=== PATIENT | female | born 1935 | race American Indian/Alaskan Native ===

== ENCOUNTER 2017-12-26 01:44 | Emergency (ER) | payer MEDICARE ==
[2017-12-26 02:01] VITALS: TEMP 98.5
--- NOTE | 2017-12-26 03:12 | ED PDOC ---
Arrival/HPI - General Chief Complaint: Upper Extremity Problem/Injury Time Seen by Provider: 12/26/17 01:56 Historian: EMS EM Caveat: Dementia - History of Present Illness Narrative History of Present Illness (Text): 12/26/17 02:45 82 year old female, whose past medical history includes hypertension, seizures, brain tumor ( remote) s/p surgery, and possible dementia, presents to the emergency department by EMS found wondering in [place]. As per EMS, patient' s only complaint is right wrist pain which she had injured recently and was already x-rayed in [facility] for on 12/18/17 which revealed a fracture. HPI and ROS limited due to patient's current state of dementia. Past Medical History - Provider Review Nursing Documentation Reviewed: Yes - Infectious Disease Hx of Infectious Diseases: None - Cardiac Hx Cardiac Disorders: Yes Hx Cardiac Arrhythmia: No Hx Congestive Heart Failure: No Hx Hypertension: Yes Hx Mitral Valve Prolapse: No Hx Pacemaker: No Hx Peripheral Edema: No - Pulmonary Hx Asthma: No Hx Bronchitis: No Hx Chronic Obstructive Pulmonary Disease (COPD): No Hx Emphysema: No Hx Pneumonia: No Hx Sleep Apnea: No - Neurological Hx Neurological Disorder: Yes Hx Alzheimer's Disease: No Hx Migraine: No Hx Parkinson's Disease: No Hx Seizures: Yes Hx Transient Ischemic Attacks (TIA): No - HEENT Hx HEENT Disorder: No - Renal Hx Renal Disorder: No Hx Kidney Stones: No - Endocrine/Metabolic Hx Hyperthyroidism: No Hx Hypothyroidism: No - Hematological/Oncological Hx Anemia: No Hx Sickle Cell Disease: No - Integumentary Hx Dermatological Disorder: No - Musculoskeletal/Rheumatological Hx Arthritis: No Hx Fractures: No Hx Osteoporosis: No - Gastrointestinal Hx Crohn's Disease: No Hx Diverticulitis: No Hx Gall Bladder Disease: No Hx Gastrointestinal Ulcer: No Hx Pancreatitis: No - Genitourinary/Gynecological Hx Sexually Transmitted Diseases: No - Psychiatric Hx Anxiety: No Hx Bipolar Disorder: No Hx Depression: No Hx Post Traumatic Stress Disorder: No Hx Schizophrenia: No Hx Substance Use: No - Surgical History Hx Appendectomy: No Hx Cholecystectomy: No Hx Coronary Stent: No - Anesthesia Hx Anesthesia: Yes Hx Anesthesia Reactions: No Hx Malignant Hyperthermia: No - Suicidal Assessment Feels Threatened In Home Enviroment: No Family/Social History - Physician Review Nursing Documentation Reviewed: Yes Family/Social History: No Known Family HX Smoking Status: Never Smoked Hx Alcohol Use: No Hx Substance Use: No Allergies/Home Meds Allergies/Adverse Reactions: Allergies No Known Allergies Allergy (Verified 12/18/17 11:11) Home Medications: Home Meds Medication Instructions Recorded Confirmed Unobtainable 12/26/17 12/26/17 Review of Systems - Physician Review All systems were reviewed & negative as marked: Yes - Review of Systems Systems not reviewed;Unavailable: Dementia Physical Exam Vital Signs Reviewed: Yes Vital Signs Temp Pulse Resp BP Pulse Ox 12/26/17 06:09 86 16 149/78 97 12/26/17 01:56 98.5 F 68 17 155/73 H 99 Temperature: Afebrile Blood Pressure: Hypertensive Pulse: Regular Respiratory Rate: Normal Appearance: Positive for: Well-Appearing, Non-Toxic, Comfortable Pain Distress: None Mental Status: Positive for: Alert and Oriented X 3 - Systems Exam Head: Present: Atraumatic, Normocephalic Pupils: Present: PERRL Extroacular Muscles: Present: EOMI Conjunctiva: Present: Normal Mouth: Present: Moist Mucous Membranes Neck: Present: Normal Range of Motion Respiratory/Chest: Present: Clear to Auscultation, Good Air Exchange. No: Respiratory Distress, Accessory Muscle Use Cardiovascular: Present: Regular Rate and Rhythm, Normal S1, S2. No: Murmurs Abdomen: No: Tenderness, Distention, Peritoneal Signs Back: Present: Normal Inspection Upper Extremity: Present: Tenderness (Some tenderness to the right wrist). No: Cyanosis, Edema Lower Extremity: Present: Normal Inspection. No: Edema Neurological: Present: GCS=15, CN II-XII Intact, Speech Normal Skin: Present: Warm, Dry, Normal Color. No: Rashes Psychiatric: Present: Alert, Oriented x 3, Normal Insight, Normal Concentration Medical Decision Making ED Course and Treatment: 12/26/17 02:55 Impression: 82 year old female presents [place] [address]. Patient's only complaint is right wrist pain which [facility] recently x-ray and resulted in a fracture. Plan: -- Reassess and disposition Prior Visits: Notes and results from previous visits were reviewed. Progress Notes: 12/26/17 03:08 Patient's son called and notified. He will be coming to the ER to pick her up. 12/26/17 06:39 Son in the ED to pick the patient up. She is awake and alert, ambulated to the bathroom without difficulty. Son notes that patient has seen ortho for her wrist and has another followup in several weeks. - Scribe Statement The provider has reviewed the documentation as recorded by the Marjorie Summers Provider Scribe Attestation: All medical record entries made by the Scribe were at my direction and personally dictated by me. I have reviewed the chart and agree that the record accurately reflects my personal performance of the history, physical exam, medical decision making, and the department course for this patient. I have also personally directed, reviewed, and agree with the discharge instructions and disposition. Disposition/Present on Arrival - Present on Arrival Any Indicators Present on Arrival: No History of DVT/PE: No History of Uncontrolled Diabetes: No Urinary Catheter: No History of Decub. Ulcer: No History Surgical Site Infection Following: None - Disposition Have Diagnosis and Disposition been Completed?: Yes Diagnosis: Right wrist pain Disposition: HOME/ ROUTINE Disposition Time: 06:30 Patient Problems: Current Active Problems Problem Status Onset Right wrist pain Acute Condition: FAIR Discharge Instructions (ExitCare): Wrist Fracture (DC) Additional Instructions: ELAYNE COHEN, thank you for letting us take care of you today. Your provider was Cherie Sheppard MD and you were treated for RIGHT ARM PAIN. The emergency medical care you received today was directed at your acute symptoms. If you were prescribed any medication, please fill it and take as directed. It may take several days for your symptoms to resolve. Return to the Emergency Department if your symptoms worsen, do not improve, or if you have any other problems. Please contact your doctor or call one of the physicians/clinics you have been referred to that are listed on the Patient Visit Information form that is included in your discharge packet. Bring any paperwork you were given at discharge with you along with any medications you are taking to your follow up visit. Our treatment cannot replace ongoing medical care by a primary care provider outside of the emergency department. Thank you for allowing the [facility] team to be part of your care today. If you had an X-Ray or CT scan: A Radiologist will review the ED reading if any change in treatment is needed we will contact you. If you had a blood, urine, or wound culture: It will take several days for the results, if any change in treatment is needed we will contact you. If you had an STI test: It will take 48 hours for the results. Please call after 1 week if you have not heard back. Referrals: Donnie Cohen JD, MD [Primary Care Provider] - Follow up with primary Forms: [employer] (Japanese)
[2017-12-26 06:10] VITALS: BP 149/78; PULSE 86; RESP 16; O2SAT 97
== END 2017-12-26 06:40 | disposition home or self-care (01) ==
LOC: ED 01:44
DX: M25.531 Pain in right wrist (principal); I10 Essential (primary) hypertension

== ENCOUNTER 2018-01-27 10:48 | Emergency (ER) | payer MEDICARE ==
[2018-01-27 11:12] VITALS: RESP 18
--- NOTE | 2018-01-27 12:15 | RAD ---
PROCEDURE: Right Hand Radiographs. HISTORY: wrist pain COMPARISON: None. FINDINGS: BONES: Comminuted intra-articular fracture of the distal radius, with callus formation indicating nonacute nature. There is dorsal angulation of the distal radius. There is an ununited ulnar styloid process fracture with minimal displacement. The radiocarpal articulation is grossly intact. The hand is intact. There is no osseous fracture appreciated. JOINTS: Normal. No osteoarthritic changes. SOFT TISSUES: Normal. OTHER FINDINGS: None. IMPRESSION: Healing comminuted intra-articular distal radial fracture with dorsal angulation. Ununited mildly displaced ulnar styloid process fracture.
[2018-01-27 12:36] LABS: INR 0.96; PARTIAL THROMBOPLASTIN TIME 25.1 Seconds (25.1-36.5)
[2018-01-27 12:43] LABS: ALBUMIN 3.6 g/dL (3.0-4.8); ALT/SGPT 41 U/L (7-56); AST/SGOT 47 U/L (14-36); BLOOD UREA NITROGEN 18 mg/dL (7-21); GFR AFRICAN-AMERICAN > 60; GFR NON-AFRICAN AMERICAN 53
--- NOTE | 2018-01-27 12:48 | ED PDOC ---
Arrival/HPI - General Chief Complaint: Lower Extremity Problem/Injury Time Seen by Provider: 01/27/18 10:58 Historian: Patient, Family EM Caveat: Acuity of Condition - History of Present Illness Narrative History of Present Illness (Text): 82 y/o F w/ h/o DM, presenting for bilateral LE swelling ongoing for the last 2 weeks. Per patient's son, the patient was noted to have bilateral swelling of the lower extremities for the last month, but worsened in the last 2 weeks. He reports the patient has been able to ambulate with the assistance of a walker, but complains of discomfort. She denies any changes in swelling with elevation of the lower extremities when sitting down & denies calf pain. She also complains of a R wrist pain s/p an injury sustained last week when she had a door collide into her hand. She reports previously having a splint placed, but was unsure of if the wrist was fractured and took it off the next day. She denies chest pain, shortness of breath, palpitations, back pain, abdominal pain , dizziness, nausea/emesis or syncopal episodes. She reports being on aspirin and Plavix. Time/Duration: > week Symptom Onset: Gradual Symptom Course: Worsening Quality: Aching, Pressure Severity Level: Moderate Activities at Onset: Rest Context: Home Past Medical History - Provider Review Nursing Documentation Reviewed: Yes - Travel History Have you recently traveled outside [place] w/in the past 3 mons?: No - Infectious Disease Hx of Infectious Diseases: None - Cardiac Hx Cardiac Disorders: Yes Hx Cardiac Arrhythmia: No Hx Congestive Heart Failure: No Hx Hypertension: Yes Hx Mitral Valve Prolapse: No Hx Pacemaker: No Hx Peripheral Edema: No - Pulmonary Hx Asthma: No Hx Bronchitis: No Hx Chronic Obstructive Pulmonary Disease (COPD): No Hx Emphysema: No Hx Pneumonia: No Hx Sleep Apnea: No - Neurological Hx Neurological Disorder: No - HEENT Hx HEENT Disorder: No - Renal Hx Renal Disorder: No Hx Kidney Stones: No - Endocrine/Metabolic Hx Hyperthyroidism: No Hx Hypothyroidism: No - Hematological/Oncological Hx Anemia: No Hx Sickle Cell Disease: No - Integumentary Hx Dermatological Disorder: No - Musculoskeletal/Rheumatological Hx Arthritis: No Hx Fractures: No Hx Osteoporosis: No - Gastrointestinal Hx Crohn's Disease: No Hx Diverticulitis: No Hx Gall Bladder Disease: No Hx Gastrointestinal Ulcer: No Hx Pancreatitis: No - Genitourinary/Gynecological Hx Sexually Transmitted Diseases: No - Psychiatric Hx Anxiety: No Hx Bipolar Disorder: No Hx Depression: No Hx Post Traumatic Stress Disorder: No Hx Schizophrenia: No Hx Substance Use: No - Surgical History Hx Appendectomy: No Hx Cholecystectomy: No Hx Coronary Stent: No - Anesthesia Hx Anesthesia: Yes Hx Anesthesia Reactions: No Hx Malignant Hyperthermia: No - Suicidal Assessment Feels Threatened In Home Enviroment: No Family/Social History - Physician Review Nursing Documentation Reviewed: Yes Family/Social History: Unknown Family HX Smoking Status: Never Smoked Hx Alcohol Use: No Hx Substance Use: No Allergies/Home Meds Allergies/Adverse Reactions: Allergies No Known Allergies Allergy (Verified 12/18/17 11:11) Home Medications: Home Meds Medication Instructions Recorded Confirmed Unobtainable 12/26/17 12/26/17 Review of Systems - Review of Systems Eyes: absent: Vision Changes, Photophobia, Eye Pain ENT: absent: Hearing Changes Respiratory: absent: SOB, Sputum, Wheezing Cardiovascular: Edema. absent: Chest Pain, Palpitations, Calf Pain, Syncope Gastrointestinal: absent: Abdominal Pain, Constipation, Nausea, Vomiting Skin: absent: Rash, Laceration, Cellulitis Neurological: absent: Headache, Dizziness, Gait Changes Psychiatric: absent: Anxiety, Depression Physical Exam Vital Signs Reviewed: Yes Vital Signs Temp Pulse Resp BP Pulse Ox 01/27/18 18:31 98 F 76 18 131/72 96 01/27/18 16:10 50 L 18 126/60 100 01/27/18 10:49 97.7 F 55 L 18 120/96 H 100 Mental Status: Positive for: Alert and Oriented X 3 - Systems Exam Head: Present: Atraumatic, Normocephalic Neck: Present: Normal Range of Motion. No: MIDLINE TENDERNESS, Paraspinal Tenderness Respiratory/Chest: Present: Clear to Auscultation, Good Air Exchange. No: Respiratory Distress, Wheezes Cardiovascular: Present: Normal S1, S2, Peripheal Pulses Present, Bradycardic. No: Irregular Rhythm Abdomen: No: Tenderness, Distention, Peritoneal Signs Lower Extremity: Present: Edema, NORMAL PULSES, Normal ROM, Capillary Refill < 2 s. No: CALF TENDERNESS, Cyanosis Neurological: Present: GCS=15, CN II-XII Intact, Speech Normal Skin: Present: Warm, Dry, Normal Color. No: Erythematous, Laceration Psychiatric: Present: Alert, Oriented x 3, Normal Insight, Normal Concentration Medical Decision Making ED Course and Treatment: Impression 82 y/o F s/p fall w/ b/l LE edema Given the patient does not have history of HF, but has worsening edema, labs and clinical suspicion for volume overload will be monitored. She may also have an occult fracture that may need splinting and will have imaging studies performed for confirmation. Differential Diagnoses Include but is not limited to: Lymphedema CHF Fracture Plan -XR hand -LE Duplex dopplers -Labs -Analgesics -Consult to Orthopedics -Reassess & Dispostion Progress Notes 01/27/18 12:42 XR show communiuted fracture of distal radius w/ ulnar styloid process fracture with minimal displacement. Spoke to Dr. Da Silva(ortho) who requests splinting with follow up in office on . Dopplers pending. 01/27/18 13:29 Chemistries unremarkable. Lab called and reports CBC hemolysis. Redrawn with specimen sent back to lab. Patient comfortable with no complaints at this time. Spoke with Dr. Da Silva who requests patient to have wrist XR. Pending Doppler read. 01/27/18 15:00 Call placed to US in regards to Doppler results. Tech will remind reading radiologist of pending read. Diet ordered for patient. 01/27/18 15:04 XR wrist consistent with previous hand XR. Pending Doppler read. 01/27/18 16:00 Call to radiologist jaylen who states radiologist is currently in procedure and will remind him of pending read. Patient comfortable and asymptomatic at this time. - Lab Interpretations Lab Results: 01/27/18 13:05 01/27/18 12:10 Lab Results 01/27/18 13:05: WBC 5.7, RBC 3.76, Hgb 11.2 L, Hct 34.1 L, MCV 90.7, MCH 29.8, MCHC 32.8, RDW 13.8, Plt Count 130, MPV 9.5, Gran % 47.7 L, Lymph % (Auto) 44.1 H, [place] % (Auto) 6.3 H, Eos % (Auto) 1.7, Baso % (Auto) 0.2, Gran # 2.74, Lymph # (Auto) 2.5, [place] # (Auto) 0.4, Eos # (Auto) 0.1, Baso # (Auto) 0.01 01/27/18 12:10: PT 11.0, INR 0.96, APTT 25.1 01/27/18 12:10: Sodium 143, Potassium 4.8, Chloride 109 H, Carbon Dioxide 28, Anion Gap 11, BUN 18, Creatinine 1.0, Est GFR ( Amer) > 60, Est GFR (Non- Af Amer) 53, Random Glucose 92, Calcium 9.0, Total Bilirubin 0.3, AST 47 H D, ALT 41, Alkaline Phosphatase 110, Total Protein 7.4, Albumin 3.6, Globulin 3.7, Albumin/Globulin Ratio 1.0 L - RAD Interpretation Radiology Orders: 01/27/18 11:23 HAND RIGHT 3 VIEWS [RAD] Stat DUPLEX LOWER EXTRM VEIN BILAT [US] Stat 01/27/18 13:49 WRIST, RIGHT 3 VIEWS [RAD] Stat - Medication Orders Current Medication Orders: Discontinued Medications Acetaminophen (Tylenol 325mg Tab) 650 mg PO STAT STA Stop: 01/27/18 11:27 Last Admin: 01/27/18 12:10 Dose: 650 mg MAR Pain/Vitals Document 01/27/18 12:10 EQ (Rec: 01/27/18 12:10 EQ [id number]) Pain Reassessment Is This A Pain ReAssessment? No Sleep Is patient sleeping during reassessment? No Presence of Pain Presence of Pain Yes Ibuprofen (Motrin Tab) 600 mg PO STAT STA Stop: 01/27/18 11:28 Last Admin: 01/27/18 12:10 Dose: 600 mg MAR Pain/Vitals Document 01/27/18 12:10 EQ (Rec: 01/27/18 12:11 EQ [id number]) Pain Reassessment Is This A Pain ReAssessment? No Sleep Is patient sleeping during reassessment? No Presence of Pain Presence of Pain Yes Disposition/Present on Arrival - Present on Arrival Any Indicators Present on Arrival: No History of DVT/PE: No History of Uncontrolled Diabetes: No Urinary Catheter: No History of Decub. Ulcer: No History Surgical Site Infection Following: None - Disposition Have Diagnosis and Disposition been Completed?: Yes Diagnosis: Leg edema, Wrist fracture, right Disposition: HOME/ ROUTINE Disposition Time: 15:30 Patient Plan: Discharge Condition: IMPROVED Discharge Instructions (ExitCare): Dependent Edema (DC), Wrist Fracture (DC) Additional Instructions: Please follow up with Dr. Da Silva(bone doctor) in 2 days. Call his office at [phone] to set an appointment Bring your wrist XR with you Do no remove splint from wrist until after you see Dr. Da Silva in office. Referrals: Donnie Cohen JD, MD [Primary Care Provider] - Follow up with primary Forms: [employer] (Yakut)
[2018-01-27 13:17] LABS: BASO # 0.01 K/mm3 (0.0-2.0); BASO % 0.2 % (0.0-3.0); EOS # 0.1 (0.0-0.7); EOS % 1.7 % (1.5-5.0); GRAN # 2.74 (1.4-6.5); GRAN % 47.7 % (50.0-68.0); HEMOGLOBIN 11.2 g/dL (12.0-16.0); LYMPH # 2.5 (1.2-3.4); LYMPH % 44.1 % (22.0-35.0); MEAN CELL VOLUME 90.7 fl (80.0-105.0); MEAN CORPUSCULAR HEMOGLOBIN 29.8 pg (25.0-35.0); MEAN CORPUSCULAR HGB CONC 32.8 g/dl (31.0-37.0); MEAN PLATELET VOLUME 9.5 fl (7.0-11.0); MONO # 0.4 (0.1-0.6); MONO % 6.3 % (1.0-6.0); RBC 3.76 10^6/uL (3.5-6.1); RED CELL DISTRIBUTION WIDTH 13.8 % (11.5-14.5); WHITE BLOOD COUNT 5.7 10^3/ul (4.5-11.0)
--- NOTE | 2018-01-27 15:09 | RAD ---
Date of service: 01/27/2018 PROCEDURE: Right Wrist Radiographs. HISTORY: wrist fracture COMPARISON: X-ray hand 01/27/2018 12 p.m. FINDINGS: BONES: Four films are submitted labeled post reduction. Bony detail is obscured by overlying fiberglass cast material. The previously identified distal radial fracture is again demonstrated. There is dorsal angulation of the distal radial fragment. There is some impaction of the fracture. There is positive ulnar variance which may be due in part to capture impaction. There is callus seen about the distal radial fracture consistent with healing of a nonacute fracture. There is a mildly displaced ulnar styloid process fracture. JOINTS: Normal. No dislocation. SOFT TISSUES: Normal. OTHER FINDINGS: None. IMPRESSION: Healing distal radial fracture. Mildly displaced ulnar styloid process fracture. Positive ulnar variance.
--- NOTE | 2018-01-27 17:13 | US ---
HISTORY: Leg pain and swelling. Evaluate for DVT PHYSICIAN(S): Napoleon Evans MD. TECHNIQUE: Duplex sonography and color-flow Doppler with graded compression were used to evaluate the deep venous systems of both lower extremities. FINDINGS: The visualized deep venous systems of both lower extremities are sonographically normal and compressible. Normal wave forms and augmentation are seen. There is no sonographic evidence for deep venous thrombosis in the visualized segments of both lower extremities. IMPRESSION: No sonographic evidence for deep venous thrombosis in the visualized segments of both lower extremities.
[2018-01-27 18:33] VITALS: BP 131/72; PULSE 76; TEMP 98; O2SAT 96
== END 2018-01-27 18:33 | disposition home or self-care (01) ==
LOC: ED 10:48
DX: R60.0 Localized edema (principal); S52.591A Other fractures of lower end of right radius, initial encounter for closed fracture; W22.8XXA Striking against or struck by other objects, initial encounter; Y92.9 Unspecified place or not applicable; I10 Essential (primary) hypertension; E11.9 Type 2 diabetes mellitus without complications

== ENCOUNTER 2018-04-18 11:09 | Emergency (ER) | payer MEDICAID, MEDICARE ==
[2018-04-18] MEDS ORDERED: Sodium Chloride 0.9% 500 ML IV STA (11:23)
--- NOTE | 2018-04-18 11:59 | RAD ---
Date of service: 04/18/2018 HISTORY: ams COMPARISON: 04/22/2017 FINDINGS: LUNGS: No active pulmonary disease. PLEURA: No significant pleural effusion identified, no pneumothorax apparent. CARDIOVASCULAR: Aortic calcification Moderate cardiomegaly no pulmonary vascular congestion. OSSEOUS STRUCTURES: No significant abnormalities. VISUALIZED UPPER ABDOMEN: Normal. OTHER FINDINGS: None. IMPRESSION: No active disease.
--- NOTE | 2018-04-18 12:02 | ED PDOC ---
Arrival/HPI - General Chief Complaint: Altered Mental Status Time Seen by Provider: 04/18/18 11:18 Historian: EMS EM Caveat: Altered Mental Status - History of Present Illness Narrative History of Present Illness (Text): 04/18/18 11:56 An 83 year old female, whose past medical history includes dementia, CVA with left sided facial droop, is brought into the emergency department via EMS for further evaluation. As per EMS, patient was dropped off at a bagel store and she wandered into the store kitchen. The workers called EMS. When EMS arrived, they found the patient to be altered. Patient is covered in vomit in the emergency department and is moving all extremities equally. Patient HPI/ ROS limited due to altered mental status. Time/Duration: Prior to Arrival Symptom Onset: Sudden Symptom Course: Unchanged Activities at Onset: Rest, Light Context: Other ([employer]) Past Medical History - Provider Review Nursing Documentation Reviewed: Yes - Infectious Disease Hx of Infectious Diseases: None - Cardiac Hx Cardiac Arrhythmia: No Hx Congestive Heart Failure: No Hx Hypertension: Yes Hx Mitral Valve Prolapse: No Hx Pacemaker: No Hx Peripheral Edema: No - Pulmonary Hx Asthma: No Hx Bronchitis: No Hx Chronic Obstructive Pulmonary Disease (COPD): No Hx Emphysema: No Hx Pneumonia: No Hx Sleep Apnea: No - Neurological Hx Alzheimer's Disease: Yes Hx Dementia: No Hx Migraine: No Hx Parkinson's Disease: No Hx Seizures: Yes Hx Transient Ischemic Attacks (TIA): No - HEENT Hx HEENT Disorder: No - Renal Hx Renal Disorder: No Hx Kidney Stones: No - Endocrine/Metabolic Hx Hyperthyroidism: No Hx Hypothyroidism: No - Hematological/Oncological Hx Anemia: No Hx Sickle Cell Disease: No - Integumentary Hx Dermatological Disorder: No - Musculoskeletal/Rheumatological Hx Arthritis: No Hx Fractures: No Hx Osteoporosis: No - Gastrointestinal Hx Crohn's Disease: No Hx Diverticulitis: No Hx Gall Bladder Disease: No Hx Gastrointestinal Ulcer: No Hx Pancreatitis: No - Genitourinary/Gynecological Hx Sexually Transmitted Diseases: No - Psychiatric Hx Anxiety: No Hx Bipolar Disorder: No Hx Depression: No Hx Post Traumatic Stress Disorder: No Hx Schizophrenia: No Hx Substance Use: No - Surgical History Hx Appendectomy: No Hx Cholecystectomy: No Hx Coronary Stent: No - Anesthesia Hx Anesthesia: Yes Hx Anesthesia Reactions: No Hx Malignant Hyperthermia: No - Suicidal Assessment Feels Threatened In Home Enviroment: No Family/Social History - Physician Review Nursing Documentation Reviewed: Yes Family/Social History: No Known Family HX Smoking Status: Smoker Currrent Status Unknown Hx Alcohol Use: No Hx Substance Use: No Allergies/Home Meds Allergies/Adverse Reactions: Allergies No Known Allergies Allergy (Verified 04/18/18 11:22) Home Medications: Home Meds Medication Instructions Recorded Confirmed Unobtainable 04/18/18 04/18/18 Review of Systems - Review of Systems Systems not reviewed;Unavailable: Altered Mental Status Physical Exam Temperature: Afebrile Blood Pressure: Normal Pulse: Bradycardic Respiratory Rate: Normal Appearance: Positive for: Cachectic (Thin and cachectic), Other (Covered in vomit.) Pain Distress: None Mental Status: No: Alert and Oriented X 3 (Alert , oriented 1 only) Finger Stick Blood Glucose: 127 - Systems Exam Head: Present: Atraumatic, Other (Left sided facial droop noted, which is old according to previous records) Pupils: Present: PERRL Extroacular Muscles: Present: EOMI Conjunctiva: Present: Normal Ears: Present: NORMAL TM, Normal Canal. No: Erythema, TM Bulging Mouth: Present: Moist Mucous Membranes Pharnyx: No: ERYTHEMA, EXUDATE, TONSILS ENLARGED Neck: Present: Normal Range of Motion Respiratory/Chest: Present: Decreased Breath Sounds (lung sounds diminished. ) Cardiovascular: Present: Regular Rate and Rhythm, Normal S1, S2. No: Murmurs Abdomen: No: Tenderness, Distention, Peritoneal Signs Back: Present: Normal Inspection Upper Extremity: Present: Normal Inspection. No: Cyanosis, Edema Lower Extremity: Present: Normal Inspection. No: Edema Neurological: Present: GCS=15, CN II-XII Intact, Speech Normal, Other (Moving all extremities equally. ) Skin: Present: Warm, Dry, Normal Color. No: Rashes Psychiatric: Present: Alert, Normal Insight, Normal Concentration. No: Oriented x 3 (Oriented x 1) Medical Decision Making ED Course and Treatment: 04/18/18 12:06 Impression: An 83 year old female is brought into the emergency department by EMS for further evaluation for AMS. Plan: -- Head CT -- EKG -- Chest X-ray -- Labs -- Urinalysis -- Zofran and IV Fluids -- Reassess and disposition Prior Visits: Notes and results from previous visits were reviewed. Progress Notes: 04/18/18 12:07 04/18/18 13:34 EKG shows normal sinus rhythm with a sinus bradycardia rate approximately 50 and a primary AV block and LVH with no acute ST or T-wave changes. 04/18/18 16:17 Very difficult straight catheterization, and I believe the red blood cells in her urine related to this. 04/18/18 16:22 Son reports patient is in her usual mental state. She will be discharged home with him. - Lab Interpretations I have reviewed the lab results: Yes - RAD Interpretation Radiology Orders: 04/18/18 11:23 HEAD W/O CONTRAST [CT] Stat 04/18/18 11:24 CHEST PORTABLE [RAD] Stat CT scan of the head as read by the radiologist shows an old craniotomy and atrophy with no acute findings. Inspector Dials: Radiologist - EKG Interpretation Interpreted by ED Physician: Yes Type: 12 lead EKG - Medication Orders Current Medication Orders: Discontinued Medications Sodium Chloride (Sodium Chloride 0.9%) 500 mls @ 1,000 mls/hr IV .Q30M STA Stop: 04/18/18 11:52 Last Admin: 04/18/18 11:52 Dose: 1,000 mls/hr eMAR Start Stop Document 04/18/18 11:52 MR (Rec: 04/18/18 11:52 MR [id number]) Intravenous Solution Start Date 04/18/18 Start Time 11:52 End Date 04/18/18 End time 12:22 Total Infusion Time 30 Ondansetron HCl (Zofran Inj) 4 mg IVP ONCE ONE Stop: 04/18/18 11:25 Last Admin: 04/18/18 11:46 Dose: 4 mg IVP Administration Document 04/18/18 11:46 MR (Rec: 04/18/18 11:50 MR [id number]) Charges for Administration # of IVP Administrations 1 - Scribe Statement The provider has reviewed the documentation as recorded by the Marjorie Monsalve Provider Scribe Attestation: All medical record entries made by the Scribe were at my direction and personally dictated by me. I have reviewed the chart and agree that the record accurately reflects my personal performance of the history, physical exam, medical decision making, and the department course for this patient. I have also personally directed, reviewed, and agree with the discharge instructions and disposition. Disposition/Present on Arrival - Present on Arrival Any Indicators Present on Arrival: No History of DVT/PE: No History of Uncontrolled Diabetes: No Urinary Catheter: No History of Decub. Ulcer: No History Surgical Site Infection Following: None - Disposition Have Diagnosis and Disposition been Completed?: Yes Diagnosis: Dementia Disposition: HOME/ ROUTINE Disposition Time: 16:23 Patient Plan: Discharge Condition: FAIR Discharge Instructions (ExitCare): Dementia (Including Alzheimer Disease) Forms: [employer] (Bahraini)
[2018-04-18 12:17] LABS: BASO # 0.01 K/mm3 (0.0-2.0); BASO % 0.2 % (0.0-3.0); EOS % 0.6 % (1.5-5.0); GRAN # 3.57 (1.4-6.5); GRAN % 68.9 % (50.0-68.0); HEMOGLOBIN 11.3 g/dL (12.0-16.0); LYMPH # 1.3 (1.2-3.4); LYMPH % 25.9 % (22.0-35.0); MEAN CELL VOLUME 92.5 fl (80.0-105.0); MEAN CORPUSCULAR HEMOGLOBIN 29.2 pg (25.0-35.0); MEAN CORPUSCULAR HGB CONC 31.6 g/dl (31.0-37.0); MEAN PLATELET VOLUME 9.6 fl (7.0-11.0); MONO # 0.2 (0.1-0.6); MONO % 4.4 % (1.0-6.0); RBC 3.87 10^6/uL (3.5-6.1); RED CELL DISTRIBUTION WIDTH 13.8 % (11.5-14.5); WHITE BLOOD COUNT 5.2 10^3/uL (4.5-11.0)
[2018-04-18 12:26] LABS: CALCIUM 9.4 mg/dL (8.4-10.5)
[2018-04-18 12:37] LABS: TROPONIN I 0.03 ng/mL
[2018-04-18 12:46] LABS: INR 1.04
--- NOTE | 2018-04-18 13:33 | CT ---
Date of service: 04/18/2018 PROCEDURE: CT HEAD WITHOUT CONTRAST. HISTORY: ams COMPARISON: 04/22/2017 TECHNIQUE: Axial computed tomography images were obtained through the head/brain without intravenous contrast. Radiation dose: Total exam DLP = 857.17 mGy-cm. This CT exam was performed using one or more of the following dose reduction techniques: Automated exposure control, adjustment of the mA and/or kV according to patient size, and/or use of iterative reconstruction technique. FINDINGS: HEMORRHAGE: No intracranial hemorrhage. BRAIN: No mass effect or edema. There is a previous left occipital craniotomy. There is cerebellar atrophy and encephalomalacia. VENTRICLES: Unremarkable. No hydrocephalus. CALVARIUM: Unremarkable. PARANASAL SINUSES: Unremarkable as visualized. No significant inflammatory changes. MASTOID AIR CELLS: Unremarkable as visualized. No inflammatory changes. OTHER FINDINGS: None. IMPRESSION: No acute intracranial findings
--- NOTE | 2018-04-18 15:45 | CARD ---
APPROVED REPORT Date of service: 04/18/2018 EKG Measurement Heart [id number] <Conclusion> Sinus bradycardia with premature atrial complexes Left ventricular hypertrophy with repolarization abnormality Abnormal ECG
[2018-04-18 15:52] LABS: PH,URINE 5.5 (4.7-8.0); URINE BILIRUBIN NEGATIVE (NEGATIVE); URINE BLOOD MODERATE (NEGATIVE); URINE GLUCOSE (UA) NEGATIVE (NEGATIVE); URINE LEUKOCYTE ESTERASE NEGATIVE Leu/uL (NEGATIVE); URINE PROTEIN 30 mg/dL (<30 mg/dL); URINE UROBILINOGEN 0.2 E.U./dL (<1 E.U./dL)
[2018-04-18 15:55] LABS: URINE APPEARANCE CLEAR (CLEAR); URINE COLOR YELLOW (YELLOW)
[2018-04-18 15:59] LABS: URINE RBC 20 - 25 /hpf (0-2); URINE WBC 0 - 2 /hpf (0-6)
[2018-04-18 16:00] LABS: URINE BACTERIA MANY (NEG)
[2018-04-18 19:31] VITALS: RESP 17; O2SAT 100
[2018-04-18 23:37] VITALS: BP 127/82; PULSE 67; TEMP 98.2
== END 2018-04-18 21:20 | disposition home or self-care (01) ==
LOC: ED 11:09
DX: F03.90 Unspecified dementia, unspecified severity, without behavioral disturbance, psychotic disturbance, mood disturbance, and anxiety (principal); I10 Essential (primary) hypertension
CPT/HCPCS: 70450; 71045; 80053; 81001; 82550; 83615; 83735; 84100; 84484; 85025; 85610; 85730; 93005; 96374; 99285; J2405; J7040

== ENCOUNTER 2018-06-15 05:36 | Emergency (ER) | payer MEDICARE ==
--- NOTE | 2018-06-15 05:48 | ED PDOC ---
Arrival/HPI - General Historian: Patient, EMS - History of Present Illness Narrative History of Present Illness (Text): 06/15/18 05:49 83F with a PMHx of brain mass s/p neurosurgical intervention, seizure disorder, HTN, CHF, and dementia present to the ED with shortness of breath since last night. she noticed it while watching tv at home. Pt states she currently feels comfortable to still SOB at rest. Pt takes all her medications as prescribed and lives in the same building as her son who is her cement mason. Pt denies cp, fevers, chills, sick contacts, <Timothy Bee - Last Filed: 06/15/18 05:58> <Joel Martinez - Last Filed: 06/15/18 07:34> - General Chief Complaint: Anxiety Time Seen by Provider: 06/15/18 05:44 Past Medical History - Provider Review Nursing Documentation Reviewed: Yes - Infectious Disease Hx of Infectious Diseases: None - Cardiac Hx Cardiac Arrhythmia: No Hx Congestive Heart Failure: No Hx Hypertension: Yes Hx Mitral Valve Prolapse: No Hx Pacemaker: No Hx Peripheral Edema: No - Pulmonary Hx Asthma: No Hx Bronchitis: No Hx Chronic Obstructive Pulmonary Disease (COPD): No Hx Emphysema: No Hx Pneumonia: No Hx Sleep Apnea: No - Neurological Hx Alzheimer's Disease: Yes Hx Dementia: No Hx Migraine: No Hx Parkinson's Disease: No Hx Seizures: Yes Hx Transient Ischemic Attacks (TIA): No - HEENT Hx HEENT Disorder: No - Renal Hx Renal Disorder: No Hx Kidney Stones: No - Endocrine/Metabolic Hx Hyperthyroidism: No Hx Hypothyroidism: No - Hematological/Oncological Hx Anemia: No Hx Sickle Cell Disease: No - Integumentary Hx Dermatological Disorder: No - Musculoskeletal/Rheumatological Hx Arthritis: No Hx Fractures: No Hx Osteoporosis: No - Gastrointestinal Hx Crohn's Disease: No Hx Diverticulitis: No Hx Gall Bladder Disease: No Hx Gastrointestinal Ulcer: No Hx Pancreatitis: No - Genitourinary/Gynecological Hx Sexually Transmitted Diseases: No - Psychiatric Hx Anxiety: No Hx Bipolar Disorder: No Hx Depression: No Hx Post Traumatic Stress Disorder: No Hx Schizophrenia: No Hx Substance Use: No - Surgical History Hx Appendectomy: No Hx Cholecystectomy: No Hx Coronary Stent: No - Anesthesia Hx Anesthesia: Yes Hx Anesthesia Reactions: No Hx Malignant Hyperthermia: No - Suicidal Assessment Feels Threatened In Home Enviroment: No <Timothy Bee - Last Filed: 06/15/18 05:58> Family/Social History - Physician Review Nursing Documentation Reviewed: Yes Family/Social History: Unknown Family HX Smoking Status: Smoker Currrent Status Unknown Hx Alcohol Use: No Hx Substance Use: No <Timothy Bee - Last Filed: 06/15/18 05:58> Allergies/Home Meds <Timothy Bee - Last Filed: 06/15/18 05:58> <JuanJoel - Last Filed: 06/15/18 07:34> Allergies/Adverse Reactions: Allergies No Known Allergies Allergy (Verified 04/18/18 11:22) Home Medications: Home Meds Medication Instructions Recorded Confirmed Unobtainable 04/18/18 04/18/18 Review of Systems - Physician Review All systems were reviewed & negative as marked: Yes - Review of Systems Systems not reviewed;Unavailable: Dementia Constitutional: absent: Fevers, Night Sweats Respiratory: SOB. absent: Cough, Wheezing Cardiovascular: absent: Chest Pain, Syncope Gastrointestinal: absent: Abdominal Pain, Hematochezia, Hematemesis Genitourinary Female: absent: Dysuria Musculoskeletal: absent: Arthralgias, Back Pain, Myalgias Neurological: absent: Headache, Dizziness <Timothy Bee - Last Filed: 06/15/18 05:58> Physical Exam Vital Signs Temp Pulse Resp BP Pulse Ox 06/15/18 05:42 98.5 F 57 L 18 143/74 100 Temperature: Afebrile Blood Pressure: Normal Pulse: Bradycardic Respiratory Rate: Normal Appearance: Positive for: Cachectic Pain Distress: Mild Mental Status: Positive for: Confused - Systems Exam Head: Present: Atraumatic Pupils: Present: PERRL Extroacular Muscles: Present: Gaze Palsy (L side) Mouth: Present: Other (droop L side) Respiratory/Chest: Present: Clear to Auscultation. No: Respiratory Distress, Accessory Muscle Use, Wheezes, Rales Cardiovascular: Present: Normal S1, S2, Bradycardic. No: Murmurs Abdomen: No: Tenderness, Distention, Normal Bowel Sounds Upper Extremity: Present: NORMAL PULSES, Capillary Refill < 2s. No: Normal In spection, Cyanosis Lower Extremity: Present: NORMAL PULSES, Capillary Refill < 2 s Neurological: Present: GCS=15, CN II-XII Intact Skin: Present: Warm, Normal Color. No: Rashes Psychiatric: Present: Other (unable to recal >3 items, significant memory and cognitive deficits) <Timothy Bee - Last Filed: 06/15/18 05:58> Vital Signs Temp Pulse Resp BP Pulse Ox 06/15/18 05:42 98.5 F 57 L 18 143/74 100 <Joel Martinez - Last Filed: 06/15/18 07:34> Medical Decision Making ED Course and Treatment: 06/15/18 06:01 #Possible CHF exacerbation f/u CBC CMP Cardiac Enzymes, Coags, CXR, BNP <Timothy Bee - Last Filed: 06/15/18 05:58> ED Course and Treatment: Impression: Pt seen and evaluated with medical records technician. Aware and agree with HPI, clinical findings, plan, and management. Pt, whose past medical history includes CVA, brain mass s/p surgical intervention, seizure disorder, hypertension, CHF, and dementia, for shortness of breath. Plan: -- EKG -- CXR -- Labs, BNP, cardiac enzymes -- Reassess and disposition 06/15/18 07:[address] Fields, pending labwork, reassessment, and disposition. - RAD Interpretation Narrative RAD Interpretations (Text): 06/15/18 07:33 Chest X-ray-No acute process Radiology Orders: 06/15/18 06:03 CHEST PORTABLE [RAD] Stat Corporate Real Estate Manager: ED Physician <Joel Martinez - Last Filed: 06/15/18 07:34> Disposition/Present on Arrival - Present on Arrival History of DVT/PE: No History of Uncontrolled Diabetes: No Urinary Catheter: No History of Decub. Ulcer: No History Surgical Site Infection Following: None <Timothy Bee - Last Filed: 06/15/18 05:58> - Present on Arrival Any Indicators Present on Arrival: No - Disposition Have Diagnosis and Disposition been Completed?: No Disposition Time: 07:34 <Joel Martinez - Last Filed: 06/15/18 07:34> - Disposition Diagnosis: Shortness of breath Condition: STABLE Forms: [employer] (Salvadorean)
[2018-06-15 06:45] LABS: BASO # 0.01 K/mm3 (0.0-2.0); BASO % 0.2 % (0.0-3.0); EOS # 0.1 (0.0-0.7); EOS % 2.2 % (1.5-5.0); GRAN # 2.87 (1.4-6.5); GRAN % 57.7 % (50.0-68.0); HEMOGLOBIN 10.5 g/dL (12.0-16.0); LYMPH # 1.7 (1.2-3.4); LYMPH % 33.3 % (22.0-35.0); MEAN CORPUSCULAR HEMOGLOBIN 28.4 pg (25.0-35.0); MEAN CORPUSCULAR HGB CONC 31.5 g/dl (31.0-37.0); MEAN PLATELET VOLUME 9.6 fl (7.0-11.0); MONO # 0.3 (0.1-0.6); MONO % 6.6 % (1.0-6.0); RBC 3.7 10^6/uL (3.5-6.1); RED CELL DISTRIBUTION WIDTH 13.8 % (11.5-14.5)
--- NOTE | 2018-06-15 07:37 | ED PDOC ---
Physical Exam Vital Signs Reviewed: Yes Vital Signs Temp Pulse Resp BP Pulse Ox 06/15/18 05:42 98.5 F 57 L 18 143/74 100 Temperature: Afebrile Blood Pressure: Normal Pulse: Bradycardic Respiratory Rate: Normal Appearance: Positive for: Well-Appearing, Non-Toxic, Comfortable Pain Distress: None Mental Status: Positive for: Alert and Oriented X 3 Medical Decision Making ED Course and Treatment: 06/15/18 07:36: Case endorsed to me by Dr. Martinez. Pending labs, reassessment, and final disposition. 06/15/18 08:[address] wells. elevated bnp but have been elevated in past and current cxr and clinical exam not consistent with acute decomp chf. it was agreed that the patient is stable for discharge. at this time, the patient appears comfortable, eating a sandwhich, appears stable for dc. - Lab Interpretations Lab Results: 06/15/18 06:10 Lab Results 06/15/18 06:10: WBC 5.0, RBC 3.70, Hgb 10.5 L, Hct 33.3 L, MCV 90.0, MCH 28.4, MCHC 31.5, RDW 13.8, Plt Count 171, MPV 9.6, Gran % 57.7, Lymph % (Auto) 33.3, Williams % (Auto) 6.6 H, Eos % (Auto) 2.2, Baso % (Auto) 0.2, Gran # 2.87, Lymph # (Auto) 1.7, Williams # (Auto) 0.3, Eos # (Auto) 0.1, Baso # (Auto) 0.01 - RAD Interpretation Radiology Orders: 06/15/18 06:03 CHEST PORTABLE [RAD] Stat - Scribe Statement The provider has reviewed the documentation as recorded by the Scribe Sharonda Monsalve Provider Scribe Attestation: All medical record entries made by the Scribe were at my direction and personally dictated by me. I have reviewed the chart and agree that the record accurately reflects my personal performance of the history, physical exam, medical decision making, and the department course for this patient. I have also personally directed, reviewed, and agree with the discharge instructions and disposition. Disposition/Present on Arrival - Present on Arrival Any Indicators Present on Arrival: No History of DVT/PE: No History of Uncontrolled Diabetes: No Urinary Catheter: No History of Decub. Ulcer: No History Surgical Site Infection Following: None - Disposition Have Diagnosis and Disposition been Completed?: Yes Diagnosis: Shortness of breath Disposition: HOME/ ROUTINE Disposition Time: 08:46 Patient Plan: Discharge Patient Problems: Current Active Problems Problem Status Onset Shortness of breath Acute Condition: STABLE Discharge Instructions (ExitCare): Shortness of Breath (Dyspnea) (DC) Additional Instructions: follow up with dr. wells-call today to make an appointment. return for any problems or new concerns. Forms: [employer] (Japanese)
[2018-06-15 08:05] LABS: ALB/GLOB RATIO 0.9 (1.1-1.8); ALBUMIN 3.8 g/dL (3.0-4.8); ALT/SGPT 32 U/L (7-56); AST/SGOT 36 U/L (14-36); BLOOD UREA NITROGEN 17 mg/dL (7-21); CALCIUM 9.2 mg/dL (8.4-10.5); GFR NON-AFRICAN AMERICAN 60
[2018-06-15 08:14] LABS: B-TYPE NATRIURETIC PEPTIDE 4720 pg/mL (0-450)
[2018-06-15 08:16] LABS: TROPONIN I 0.04 ng/mL
--- NOTE | 2018-06-15 09:16 | RAD ---
Date of service: 06/15/2018 HISTORY: sob COMPARISON: 04/18/2018 FINDINGS: LUNGS: No active pulmonary disease. PLEURA: No significant pleural effusion identified, no pneumothorax apparent. CARDIOVASCULAR: No aortic atherosclerotic calcification present. Mild cardiomegaly no pulmonary vascular congestion. OSSEOUS STRUCTURES: No significant abnormalities. VISUALIZED UPPER ABDOMEN: Normal. OTHER FINDINGS: None. IMPRESSION: No active disease.
[2018-06-15 13:40] VITALS: BP 128/50; PULSE 56; RESP 18; TEMP 98; O2SAT 97
== END 2018-06-15 12:00 | disposition home or self-care (01) ==
LOC: ED 05:36
DX: R06.02 Shortness of breath (principal); G30.9 Alzheimer's disease, unspecified; F02.80 Dementia in other diseases classified elsewhere, unspecified severity, without behavioral disturbance, psychotic disturbance, mood disturbance, and anxiety; I10 Essential (primary) hypertension; I50.9 Heart failure, unspecified; G40.909 Epilepsy, unspecified, not intractable, without status epilepticus